=== PATIENT | male | born 1950 | race Caucasian/White ===

== ENCOUNTER → 2018-07-01 11:01 | Outpatient (CLI) | payer MEDICARE, SELFPAY ==
[2018-07-01 18:12] LABS: Add Manual Diff / Slide Review NO; Basophils Percent Auto 0.4 % (0-2); Eosinophils Percent Auto 0.9 % (2-4); Hematocrit 38.4 % (41-53); Hemoglobin 12.9 g/dL (13.5-17.5); Lymphocytes Percent Auto 24.9 % (25-40); Mean Corpuscular HGB Conc 33.5 % (30-36); Mean Corpuscular Hemoglobin 31.1 PG (26-34); Mean Corpuscular Volume 92.8 fL (80-100); Monocytes Percent Auto 10.6 % (3-14); Neutrophils Absolute Auto 3400 /uL (3000-5900); Neutrophils Percent Auto 63.2 % (50-75); Platelet Count 174 X10^3/uL (150-400); Red Blood Cell Count 4.14 X10^6/uL (4.5-5.9); Red Cell Distribution Width 13.2 % (11.6-14.8); White Blood Cell Count 5.3 X10^3/uL (4.5-11.0)
== END ==
PROVIDERS: Visit Provider General Practice
DX: K43.2 Incisional hernia without obstruction or gangrene (principal)
CPT/HCPCS: 36415; 85025

== ENCOUNTER → 2019-04-03 12:18 | Outpatient (CLI) | payer MEDICARE, SELFPAY ==
[2019-04-03 13:02] LABS: Add Manual Diff / Slide Review NO; Basophils Absolute Auto 0 /uL (0-100); Basophils Percent Auto 0.3 % (0-2); Eosinophils Absolute Auto 100 /uL (0-450); Eosinophils Percent Auto 1.1 % (2-4); Hematocrit 41.2 % (41-53); Hemoglobin 13.7 g/dL (13.5-17.5); Lymphocytes Absolute Auto 1200 /uL (1100-4500); Lymphocytes Percent Auto 24.1 % (25-40); Mean Corpuscular HGB Conc 33.2 % (30-36); Mean Corpuscular Hemoglobin 31.5 PG (26-34); Mean Corpuscular Volume 94.6 fL (80-100); Monocytes Absolute Auto 500 /uL (0-900); Monocytes Percent Auto 10.9 % (3-14); Neutrophils Absolute Auto 3200 /uL (1500-7000); Neutrophils Percent Auto 63.6 % (50-75); Platelet Count 193 X10^3/uL (150-400); Red Blood Cell Count 4.36 X10^6/uL (4.5-5.9); Red Cell Distribution Width 14.1 % (11.6-14.8)
[2019-04-03 13:10] LABS: Alanine Aminotransferase 36 IU/L (21-72); Albumin 4.5 g/dL (3.5-5.0); Albumin Globulin Ratio 1.8 (1.0-2.8); Alkaline Phosphatase 66 U/L (38-126); Aspartate Aminotransferase 36 IU/L (17-59); BUN Creatinine Ratio 25.6 (6-22); Bilirubin Total 1.5 mg/dL (0.2-1.3); Blood Urea Nitrogen 23 mg/dL (9-20); Calcium 10.1 mg/dL (8.4-10.2); Carbon Dioxide 29 mmol/L (22-32); Chloride 99 mmol/L (98-107); Estimated Glomerular Filt Rate > 60.0 mL/min (>60); Globulin 2.5 g/dL (1.7-4.1); Glucose 108 mg/dL (80-110); HEMOLYSIS < 15 (0-50); Potassium 4.3 mmol/L (3.4-5.1); Sodium 137 mmol/L (137-145)
== END ==
PROVIDERS: Visit Provider Physician Assistant Medical
DX: M45.9 Ankylosing spondylitis of unspecified sites in spine (principal)
CPT/HCPCS: 36415; 80053; 85025

== ENCOUNTER → 2019-04-07 14:12 | Outpatient (CLI) | payer MEDICARE, SELFPAY | PROVIDERS: PCP Physician Assistant Medical; Visit Provider Physician Assistant Medical | DX: M45.9 Ankylosing spondylitis of unspecified sites in spine (principal) ==

== ENCOUNTER 2021-05-30 18:23 | Emergency (ER) | payer MEDICARE, SELFPAY ==
[2021-05-30 18:29] VITALS: BP 154/76; PULSE 87; RESP 16; TEMP 35.9; O2SAT 97; BMI 24.6
--- NOTE | 2021-05-30 18:45 | ED.WOUNDLAC ---
HPI - Wound/Laceration General Chief Complaint: Wound/Laceration Stated Complaint: Puncture Wound on Left Lower Leg Time Seen by Provider: 05/30/21 18:41 Source: patient Mode of arrival: Ambulatory History of Present Illness HPI narrative: Patient is a 70-year-old male on anticoagulation who sustained a wound to the front portion of his left lower leg. 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 He felt like his pant leg was wet and when he looked down there was bleeding coming from his leg. He tried compression at home and it did not stop the bleeding. Related Data Home Medications Medication Instructions Recorded Confirmed azelaic acid 15 % topical gel 50 gm TP #0 06/24/16 (Finacea) digoxin 125 mcg (0.125 mg) tablet 0.125 mg PO QDAY #0 06/24/16 (Lanoxin) diltiazem HCl 240 mg 240 mg PO #0 cap 06/24/16 capsule,extended release 24 hr hydrocodone 7.5 mg-acetaminophen 1 tab PO Q8HP PRN #0 tab 06/24/16 325 mg tablet (Ainsworth) lisinopril 20 mg tablet 20 mg PO QDAY #0 tab 06/24/16 lorazepam 0.5 mg tablet 0.5 mg PO HS PRN #0 06/24/16 metronidazole 1 % topical cream 1 reynaldo TOPICAL #60 gm 06/24/16 (Noritate) omeprazole 20 mg capsule,delayed 20 mg PO QDAY #0 06/24/16 release rivaroxaban 20 mg tablet (Xarelto) 20 mg PO QDAY #0 06/24/16 sulfasalazine 500 mg tablet 500 mg PO #0 tab 06/24/16 trazodone 50 mg tablet 50 mg PO HS #0 06/24/16 triamcinolone acetonide 0.1 % 1 reynaldo TOPICAL #15 gm 06/24/16 topical cream Previous Rx's Medication Instructions Recorded oxycodone 5 mg tablet 1 - 3 tab PO Q4HP PRN #40 tab 07/02/16 Allergies Allergy/AdvReac Type Severity Reaction Status Date / Time simvastatin [SIMVASTATIN] AdvReac Severe muscle Unverified 05/30/21 18:31 stiffness codeine [CODEINE] AdvReac Mild Unverified 05/30/21 18:31 Review of Systems Musculoskeletal Musculoskeletal: Reports as per HPI Integumentary/Breasts Comments: Multiple varicose veins, small puncture wound on the anterior distal 3rd of the left tibia. Hematologic/Lymphatic On Anticoagulants: Yes Patient History Medical History Incisional hernia Social History Smoking Status: Never smoker Smoking Status: Never smoker Substance Use Type: does not use Exam Initial Vital Signs Initial Vital Signs: Vital Signs Temperature 96.7 F L 05/30/21 18:29 Pulse Rate 87 05/30/21 18:29 Respiratory Rate 16 05/30/21 18:29 Blood Pressure 154/76 H 05/30/21 18:29 Pulse Oximetry 97 05/30/21 18:29 Const General: cooperative and healthy appearing Resp Effort & Inspection: normal respiratory effort Skin Other: Patient with multiple varicose veins. Has a small puncture wound on the anterior distal 1/3 of his left tibia Neuro General: patient alert, patient awake and patient oriented x3 Extrem General: normal to inspection and capillary refill normal Psych Appearance: grossly normal and well kempt Course Vital Signs Vital signs: Vital Signs - 8 hr 05/30/21 18:29 Temperature 96.7 F L Pulse Rate 87 Respiratory Rate 16 Blood Pressure 154/76 H Pulse Oximetry 97 MDM - Wound/Laceration MDM Narrative Medical decision making narrative: The puncture wound on his left leg appears well. Was covered with a Gelfoam and a bandage chin after a period of observation he had no continued bleeding will hold on any antibiotics for now patient was given return precautions and follow-up instructions. She expressed understanding and agreement. Discharge Plan Departure Patient Disposition: Home Clinical Impression: Puncture wound Instructions: DI for Puncture Wound Activity Restrictions/Additional Instructions: I would recommend that you leave the bandage that was placed here in the emergency department on for the next 24 hours. After that you can take it off and cover with her regular bandage as needed. Continue to take all of your medications as directed. Return to the emergency department for any new or worsening symptoms Prescriptions: No Action diltiazem HCl 240 MG capsule,extended release 24hr 240 mg PO Qty: 0 RF: 0 hydrocodone-acetaminophen [Ainsworth] 7.5 MG/325 MG tablet 1 tab PO Q8HP PRNQty: 0 RF: 0 trazodone 50 MG tablet 50 mg PO HS Qty: 0 RF: 0 lisinopril 20 MG tablet 20 mg PO QDAY Qty: 0 RF: 0 triamcinolone acetonide 0.1 % cream 1 reynaldo Topical Qty: 15 RF: 0 digoxin [Lanoxin] 125 MCG tablet 0.125 mg PO QDAY Qty: 0 RF: 0 azelaic acid [Finacea] 50 GM gel 50 gm TP Qty: 0 RF: 0 sulfasalazine 500 MG tablet 500 mg PO Qty: 0 RF: 0 metronidazole [Noritate] 1 % cream 1 reynaldo Topical Qty: 60 RF: 0 rivaroxaban [Xarelto] 20 MG tablet 20 mg PO QDAY Qty: 0 RF: 0 lorazepam 0.5 MG tablet 0.5 mg PO HS PRNQty: 0 RF: 0 omeprazole 20 MG capsule,delayed release(DR/EC) 20 mg PO QDAY Qty: 0 RF: 0 oxycodone 5 MG tablet 1 - 3 tab PO Q4HP PRNQty: 40 RF: 0 Referrals: Chary Graham PA-C [Primary Care Provider] -
--- NOTE | 2021-05-30 18:59 | PC.NURSE ---
put and anticoagulant gel foam dressing and juana and told patient he would come back and check on how it was working Patient says he is current on tetanus but doesn't remember exact date
== END 2021-05-30 19:22 | disposition home or self-care (01) ==
PROVIDERS: Emergency Provider Emergency Medicine; PCP Physician Assistant Medical
DX: S81.832A Puncture wound without foreign body, left lower leg, initial encounter (principal)
CPT/HCPCS: 99281

== ENCOUNTER → 2022-04-04 10:52 | Outpatient (CLI) | payer MEDICARE, SELFPAY ==
[2022-04-04 11:56] LABS: Prostate Specific Antigen 2.71 ng/mL (0.10-4.00)
== END ==
PROVIDERS: PCP Physician Assistant Medical; Referring Provider Family Medicine; Visit Provider Family Medicine
DX: R39.9 Unspecified symptoms and signs involving the genitourinary system (principal)
CPT/HCPCS: 36415; 84153

== ENCOUNTER → 2022-07-09 12:37 | Outpatient (CLI) | payer MEDICARE, SELFPAY ==
[2022-07-09 14:25] LABS: BUN Creatinine Ratio 20.2 (6-22); Blood Urea Nitrogen 26 mg/dL (9-20); Calcium 9.8 mg/dL (8.4-10.2); Carbon Dioxide 36 mmol/L (22-32); Chloride 95 mmol/L (98-107); Estimated Glomerular Filt Rate 59 mL/min (>60); Glucose 92 mg/dL (80-110); HEMOLYSIS < 15 (0-50); Potassium 4.2 mmol/L (3.4-5.1); Sodium 139 mmol/L (137-145)
== END ==
PROVIDERS: Referring Provider Internal Medicine Cardiovascular Disease; Visit Provider Internal Medicine Cardiovascular Disease
DX: I10 Essential (primary) hypertension (principal)
CPT/HCPCS: 36415; 80048